=== PATIENT | female | born 1940 | race Caucasian/White ===

== ENCOUNTER 2019-04-07 21:33 | Observation (INO) | payer MEDICARE ==
[2019-04-07] MEDS ORDERED: NORMAL SALINE 1000 ML 1,000 ML IV ONE (22:22)
[2019-04-07] MEDS ORDERED: METHYLPREDNISOLONE INJ 125 MG/2 ML SDV IV ONE (22:22)
[2019-04-07] MEDS ORDERED: IPRATROPIUM/ALBUTEROL 0.5-2.5 MG/3 ML AMPUL NEB ONE (22:22)
--- NOTE | 2019-04-07 22:24 | ER Document Report ---
ED General - General Chief Complaint: Near Syncope Stated Complaint: SYNCOPE Time Seen by Provider: 04/07/19 22:14 Notes: Patient is a 79-year-old female that comes emergency department for chief complaint of weakness, cough, near syncopal episode. She states she has been coughing for a week, she states she coughed until she almost passed out tonight, she states that when she did so she slid off of her bed onto her buttocks on the floor and she felt incredibly weak and like she could not get up. She called EMS as a result. She states she feels a lot better now. Oxygen saturation was 87% on room air, she was initially hypotensive as well although on my evaluation her blood pressure is 101/59. She has received 500 cc bolus and a DuoNeb treatment. She states she feels a lot better already. She denies fevers, chest pain, headache, passing out. She lives at home by herself but her son is now at bedside. Past medical history of COPD, not on home oxygen and former smoker, lower extremity edema on Lasix but denies history of CAD or CHF, type 2 diabetes. TRAVEL OUTSIDE OF THE [place] IN LAST 30 DAYS: No - Related Data Allergies/Adverse Reactions: Penicillins Allergy (Unknown, Verified 02/28/16 11:42) Past Medical History - General Information source: Patient, Relative - Social History Smoking Status: Former Smoker Chew tobacco use (# tins/day): No Frequency of alcohol use: Rare Lives with: Family Family History: Reviewed & Not Pertinent Patient has suicidal ideation: No Patient has homicidal ideation: No - Past Medical History Cardiac Medical History: Reports: Hx Hypercholesterolemia Pulmonary Medical History: Reports: Hx COPD Endocrine Medical History: Reports: Hx Diabetes Mellitus Type 2 GI Medical History: Reports: Hx Gastroesophageal Reflux Disease Musculoskeletal Medical History: Reports Hx Fibromyalgia Psychiatric Medical History: Reports: Hx Depression Past Surgical History: Reports: Hx Tonsillectomy - Immunizations Hx Diphtheria, Pertussis, Tetanus Vaccination: No Hx Pneumococcal Vaccination: 04/05/06 Review of Systems - Review of Systems Constitutional: See HPI EENT: No symptoms reported Cardiovascular: See HPI Respiratory: See HPI Gastrointestinal: No symptoms reported Genitourinary: No symptoms reported Female Genitourinary: No symptoms reported Musculoskeletal: No symptoms reported Skin: No symptoms reported Hematologic/Lymphatic: No symptoms reported Neurological/Psychological: See HPI Physical Exam - Vital signs Vitals: Resp 25 H 04/07/19 21:45 - Notes Notes: GENERAL: Alert, interacts well. HEAD: Normocephalic, atraumatic. EYES: Pupils equal, round, and reactive to light. Extraocular movements intact. ENT: Oral mucosa moist, tongue midline. Oropharynx unremarkable. Airway patent. Nares patent, no nasal septal hematoma, TM's intact. NECK: Full range of motion. Supple. Trachea midline. LUNGS: Next Tory wheezes and scattered rhonchi, mild tachypnea, frequent cough HEART: Regular rate and rhythm. ABDOMEN: Soft, non-tender. Non-distended. EXTREMITIES: Moves all 4 extremities spontaneously. No edema, normal radial and dorsalis pedis pulses bilaterally. No cyanosis. BACK: no cervical, thoracic, lumbar midline tenderness. No saddle anesthesia, normal distal neurovascular exam. Moves all extremities in full range of motion. NEUROLOGICAL: Alert and oriented x3. Normal speech. Cranial nerves II through XII grossly intact. PSYCH: Normal affect, normal mood. SKIN: Warm, dry, normal turgor. No rashes or lesions noted. Course - Re-evaluation Re-evalutation: On my evaluation patient is expiratory wheezes and scattered rhonchi with frequent cough. She also is hypoxic unless she is on nasal cannula, she will be remaining on oxygen for now. Initiating additional treatments. Blood pressure appeared to suddenly drop significantly, however this was rechecked manually and was found to be normal at 102 systolic. CBC shows leukocytosis at 27,000 with elevation of neutrophils but no bandemia. Patient denies recent steroids or usually having a high white blood cell count. Chemistry nonspecific. Troponin is not elevated, BNP is not elevated. Chest x- ray is negative, however with patient's presentation I am concerned for underlying pneumonia, she has begun treatment on Rocephin and azithromycin. Blood cultures pending. Lactic acid is not elevated. Reevaluated patient, she is still improved, wheezing is resolved, she still has coarse rhonchi and cough, she still gets hypoxic off of oxygen. She also is weak and has difficulty standing and ambulating like she does at home. Because of leukocytosis, hypoxia, weakness, advanced age, suspected pneumonia, COPD exacerbation I discussed with family I will discuss with hospitalist for potential admission. Discussed with Dr. Vázquez, internal medicine, patient accepted to telemetry observation. - Vital Signs Vital signs: Temp Pulse Resp BP Pulse Ox 98.4 F 89 18 124/58 L 95 04/08/19 06:27 04/08/19 06:27 04/08/19 06:27 04/08/19 06:27 04/08/19 06:27 - Laboratory Result Diagrams: 04/07/19 22:11 04/07/19 23:05 Laboratory results interpreted by me: 04/07/19 04/07/19 04/08/19 22:11 23:05 00:40 WBC 27.3 H Hgb 11.9 L Seg Neuts % (Manual) 84 H Band Neutrophils % 1 L Lymphocytes % (Manual) 11 L Abs Neuts (Manual) 23.2 H VBG pH Sodium 133.2 L Chloride 94 L BUN 33 H Creatinine 1.92 H Est GFR ( Amer) 30 L Est GFR (MDRD) Non-Af 25 L Direct Bilirubin 0.5 H Albumin 3.3 L Urine Protein 100 H Urine Blood SMALL H Urine Bilirubin SMALL H Urine Urobilinogen 4.0 H Ur Leukocyte Esterase MODERATE H 04/08/19 00:50 WBC Hgb Seg Neuts % (Manual) Band Neutrophils % Lymphocytes % (Manual) Abs Neuts (Manual) VBG pH 7.29 L Sodium Chloride BUN Creatinine Est GFR ( Amer) Est GFR (MDRD) Non-Af Direct Bilirubin Albumin Urine Protein Urine Blood Urine Bilirubin Urine Urobilinogen Ur Leukocyte Esterase Discharge - Discharge Clinical Impression: COPD exacerbation, Productive cough, Hypoxia, Weakness Leukocytosis Qualifiers: Leukocytosis type: unspecified Qualified Code(s): D72.829 - Elevated white blood cell count, unspecified Condition: Stable Disposition: ADMITTED OBSERVATION Admitting Provider: Gurpreet (Hospitalist) Unit Admitted: Telemetry
[2019-04-07 22:34] LABS: HEMOGLOBIN 11.9 g/dL (12.0-15.5); MEAN CORPUSCULAR HEMOGLOBIN 31.1 pg (27.0-33.4); MEAN CORPUSCULAR HGB CONC 33.1 g/dL (32.0-36.0); MEAN CORPUSCULAR VOLUME 94 fl (80-97); PLATELET COUNT 254 10^3/uL (150-450); RED BLOOD COUNT 3.82 10^6/uL (3.72-5.28); RED CELL DISTRIBUTION WIDTH 13.1 % (11.5-14.0); WHITE BLOOD COUNT 27.3 10^3/uL (4.0-10.5)
[2019-04-07 22:51] LABS: ABSOLUTE MONOCYTES # (MANUAL) 1.1 10^3/uL (0.1-1.4); BAND NEUTROPHILS % (MANUAL) 1 % (3-5); BASOPHILS % (MANUAL) 0 % (0-2); EOSINOPHILS % (MANUAL) 0 % (0-6); LYMPHOCYTES % (MANUAL) 11 % (13-45); MONOCYTES % (MANUAL) 4 % (3-13); PLATELET GIANT PRESENT; RBC MORPHOLOGY COMMENT NORMO-CYTIC/CHROMIC; SEGMENTED NEUTROPHILS % (MAN) 84 % (42-78); TOTAL CELLS COUNTED 100
[2019-04-07 22:52] LABS: PLATELET COMMENT ADEQUATE
--- NOTE | 2019-04-07 23:11 | RADIOLOGY REPORT (SQ) ---
EXAM: XR CHEST 1 VIEW CLINICAL INDICATION: 79-year-old female with cough and shortness of breath. TECHNIQUE: Single view, AP portable chest was obtained. COMPARISON: 03/06/2016. FINDINGS: Stable cardiac and mediastinal silhouette. Heart size is normal. Tortuous atherosclerotic thoracic aorta. Lungs are clear without focal opacity, pneumothorax or pleural effusions. The visualized bones reveal degenerative change, particularly of the bilateral shoulders with [id number] apposition of the glenohumeral joint LEFT worse than RIGHT, progressed since the previous examination. IMPRESSION: No acute cardiopulmonary abnormalities.
[2019-04-07] MEDS ORDERED: CEFTRIAXONE 1 GM/D5W RTU 1 GM/50 ML RTUPB IV ONE (23:25)
[2019-04-07] MEDS ORDERED: AZITHROMYCIN INJ 500 MG VIAL IV ONE (23:26)
[2019-04-07 23:42] LABS: ALBUMIN 3.3 g/dL (3.5-5.0); ALKALINE PHOSPHATASE 121 U/L (38-126); ANION GAP 14 (5-19); ASPARTATE AMINO TRANSFERASE 32 U/L (14-36); BILIRUBIN,DIRECT 0.5 mg/dL (0.0-0.4); BLOOD UREA NITROGEN 33 mg/dL (7-20); CARBON DIOXIDE 25 mmol/L (22-30); CHLORIDE 94 mmol/L (98-107); GLUCOSE 90 mg/dL (75-110); POTASSIUM 3.8 mmol/L (3.6-5.0); TOTAL PROTEIN 6.5 g/dL (6.3-8.2)
[2019-04-07 23:52] LABS: NT PRO BNP 258 pg/mL (<450)
[2019-04-07 23:59] LABS: TROPONIN I < 0.012 ng/mL
[2019-04-08 01:01] LABS: APPEARANCE,URINE CLOUDY; BILIRUBIN,URINE SMALL (NEGATIVE); GLUCOSE, URINE NEGATIVE (NEGATIVE); KETONES,URINE NEGATIVE (NEGATIVE); LEUKOCYTE ESTERASE,URINE MODERATE (NEGATIVE); NITRITE,URINE NEGATIVE (NEGATIVE); PROTEIN,URINE 100 mg/dL (NEGATIVE)
[2019-04-08 01:02] LABS: COLOR,URINE YELLOW
[2019-04-08 01:27] LABS: VENOUS BLOOD BASE EXCESS -3.1 mmol/L; VENOUS BLOOD HCO3 24.3 mmol/L (20-32); VENOUS BLOOD PCO2 51.6 mmHg (35-63); VENOUS BLOOD PH 7.29 (7.30-7.42)
[2019-04-08] MEDS ORDERED: DEXTROSE 40% GEL 15 GM TUBE PO PRN ×2 (01:57)
[2019-04-08] MEDS ORDERED: DEXTROSE 50%-WATER 25 GM/50 ML DISP.SYRIN IV PRN ×2 (01:57)
[2019-04-08] MEDS ORDERED: IPRATROPIUM/ALBUTEROL 0.5-2.5 MG/3 ML AMPUL NEB PRN (01:57)
[2019-04-08] MEDS ORDERED: GLUCAGON,HUMAN RECOMB 1 MG INJ IM PRN (01:57)
[2019-04-08] MEDS ORDERED: GUAIFENESIN SYRP 200 MG/10 ML UDC PO PRN (01:57)
[2019-04-08] MEDS: IPRATROPIUM/ALBUTEROL 0.5-2.5 MG/3 ML AMPUL NEB SCH ×4 (03:03→19:46)
--- NOTE | 2019-04-08 06:50 | PDOC H&P ---
History of Present Illness Admission Date/PCP: 04/08/19 02:18 MILLER WILLARD PA-C Patient complains of: Shortness of breath History of Present Illness: TRACEE SANON is a 79 year old female with past medical history of diabetes, CKD 3, COPD, morbid obesity, obstructive sleep apnea with noncompliance and general debility. She presents 4 hours after exertional dyspnea, cough and feeling dizzy she sat on the floor unable to get up. In the emergency department she is found to have leukocytosis, hypoxia, tachypnea and hypotension. She is treated for pneumonia with COPD exacerbation then referred to the hospitalist for admission. Patient denies recent antibiotic use, chest pain nausea vomiting. Past Medical History Cardiac Medical History: Reports: Hyperlipidema Pulmonary Medical History: Reports: Chronic Obstructive Pulmonary Disease (COPD), Sleep Apnea Endocrine Medical History: Reports: Diabetes Mellitus Type 2 GI Medical History: Reports: Gastroesophageal Reflux Disease Musculoskeltal Medical History: Reports: Fibromyalgia Psychiatric Medical History: Reports: Depression Past Surgical History Past Surgical History: Reports: Tonsillectomy Social History Information Source: Patient, [facility] Lives with: Family Smoking Status: Former Smoker Electronic Cigarette use?: No Frequency of Alcohol Use: Social Hx Recreational Drug Use: No Drugs: None Hx Prescription Drug Abuse: No - Advance Directive Resuscitation Status: Full Code Family History Family History: Hypertension Parental Family History Reviewed: Yes Children Family History Reviewed: Yes Sibling(s) Family History Reviewed.: Yes Medication/Allergy Home Medications: Albuterol Sulfate [Ventolin 0.042% Neb 1.25 mg/3 mL Ampul] 1.25 mg NEB QIDP PRN 12/21/11 Furosemide [Lasix 20 mg Tablet] 40 mg PO DAILY 12/21/11 Nortriptyline HCl 50 mg PO QHS 12/21/11 Albuterol Sulfate [Ventolin HFA MDI 18 GM] 1 - 2 puff IH Q4H PRN 03/02/16 Duloxetine HCl 30 mg PO QHS 03/07/16 Fluticasone/Salmeterol [Advair 250-50 Diskus 14 Dose/Diskus] 1 inh IH Q12 #1 inhaler 03/09/16 Glimepiride [Amaryl 1 mg Tablet] 1 mg PO QAM #30 tablet 03/09/16 Ipratropium/Albuterol Sulfate [Combivent Respimat 4 gm Mdi] 1 puff IH Q6 #1 aer.w.adap 03/09/16 Levofloxacin [Levaquin 750 mg Tablet] 750 mg PO DAILY #7 tablet 03/09/16 Levothyroxine Sodium [Synthroid 0.05 mg Tablet] 0.05 mg PO DAILY tablet 03/09/16 Allergies/Adverse Reactions: Penicillins Allergy (Unknown, Verified 02/28/16 11:42) Review of Systems Constitutional: ABSENT: chills, fever(s), headache(s), weight gain, weight loss Eyes: ABSENT: visual disturbances Ears: ABSENT: hearing changes Cardiovascular: PRESENT: as per HPI, dyspnea on exertion. ABSENT: chest pain, edema, orthropnea, palpitations Respiratory: PRESENT: as per HPI, cough, dyspnea. ABSENT: hemoptysis, sputum Gastrointestinal: ABSENT: abdominal pain, constipation, diarrhea, hematemesis, hematochezia, nausea, vomiting Genitourinary: ABSENT: dysuria, hematuria Musculoskeletal: ABSENT: joint swelling Integumentary: ABSENT: rash, wounds Neurological: ABSENT: abnormal gait, abnormal speech, confusion, dizziness, focal weakness, syncope Psychiatric: ABSENT: anxiety, depression, homidical ideation, suicidal ideation Endocrine: ABSENT: cold intolerance, heat intolerance, polydipsia, polyuria Hematologic/Lymphatic: ABSENT: easy bleeding, easy bruising Physical Exam Vital Signs: Temp Pulse Resp BP Pulse Ox 98.4 F 89 18 124/58 L 95 04/08/19 06:27 04/08/19 06:27 04/08/19 06:27 04/08/19 06:27 04/08/19 06:27 Intake & Output 04/06/19 04/07/19 04/08/19 11:59 11:59 11:59 Intake Total 1050 Balance 1050 Weight 87.09 kg General appearance: PRESENT: cooperative, disheveled, mild distress, morbidly obese Head exam: PRESENT: atraumatic, normocephalic Eye exam: PRESENT: conjunctiva pink, EOMI, PERRLA. ABSENT: scleral icterus Ear exam: PRESENT: normal external ear exam Mouth exam: PRESENT: moist, tongue midline Neck exam: ABSENT: carotid bruit, JVD, lymphadenopathy, thyromegaly Respiratory exam: PRESENT: accessory muscle use, crackles, prolonged expiratory phas, retraction, symmetrical, tachypnea Cardiovascular exam: PRESENT: RRR. ABSENT: diastolic murmur, rubs, systolic murmur Pulses: PRESENT: normal dorsalis pedis pul Vascular exam: PRESENT: normal capillary refill GI/Abdominal exam: PRESENT: normal bowel sounds, soft. ABSENT: distended, guarding, mass, organolmegaly, rebound, tenderness Rectal exam: PRESENT: deferred Extremities exam: PRESENT: full ROM. ABSENT: calf tenderness, clubbing, pedal edema Neurological exam: PRESENT: alert, awake, oriented to person, oriented to place, oriented to time, oriented to situation, CN II-XII grossly intact. ABSENT: motor sensory deficit Psychiatric exam: PRESENT: appropriate affect, normal mood. ABSENT: homicidal ideation, suicidal ideation Skin exam: PRESENT: dry, intact, warm. ABSENT: cyanosis, rash Results Laboratory Results: 04/07/19 22:11 04/07/19 23:05 04/07/19 04/07/19 04/07/19 22:11 22:11 22:11 WBC 27.3 H RBC 3.82 Hgb 11.9 L Hct 36.0 MCV 94 MCH 31.1 MCHC 33.1 RDW 13.1 Plt Count 254 Seg Neutrophils % Not Reportable VBG pH VBG pCO2 VBG HCO3 VBG Base Excess Sodium Cancelled Potassium Cancelled Chloride Cancelled Carbon Dioxide Cancelled Anion Gap Cancelled BUN Cancelled Creatinine Cancelled Est GFR ( Amer) Cancelled Est GFR (Non-Af Amer) Cancelled Glucose Cancelled Lactic Acid Cancelled Calcium Cancelled Total Bilirubin Cancelled AST Cancelled Alkaline Phosphatase Cancelled Total Protein Cancelled Albumin Cancelled Urine Color Urine Appearance Urine pH Ur Specific Junction Urine Protein Urine Glucose (UA) Urine Ketones Urine Blood Urine Nitrite Ur Leukocyte Esterase Urine WBC (Auto) Urine RBC (Auto) 04/07/19 04/07/19 04/08/19 23:05 23:05 00:40 WBC RBC Hgb Hct MCV MCH MCHC RDW Plt Count Seg Neutrophils % VBG pH VBG pCO2 VBG HCO3 VBG Base Excess Sodium 133.2 L Potassium 3.8 Chloride 94 L Carbon Dioxide 25 Anion Gap 14 BUN 33 H Creatinine 1.92 H Est GFR ( Amer) 30 L Est GFR (Non-Af Amer) Glucose 90 Lactic Acid 1.7 Calcium 9.0 Total Bilirubin 1.0 AST 32 Alkaline Phosphatase 121 Total Protein 6.5 Albumin 3.3 L Urine Color YELLOW Urine Appearance CLOUDY Urine pH 5.0 Ur Specific Junction 1.020 Urine Protein 100 H Urine Glucose (UA) NEGATIVE Urine Ketones NEGATIVE Urine Blood SMALL H Urine Nitrite NEGATIVE Ur Leukocyte Esterase MODERATE H Urine WBC (Auto) 7 Urine RBC (Auto) 3 04/08/19 00:50 WBC RBC Hgb Hct MCV MCH MCHC RDW Plt Count Seg Neutrophils % VBG pH 7.29 L VBG pCO2 51.6 VBG HCO3 24.3 VBG Base Excess -3.1 Sodium Potassium Chloride Carbon Dioxide Anion Gap BUN Creatinine Est GFR ( Amer) Est GFR (Non-Af Amer) Glucose Lactic Acid Calcium Total Bilirubin AST Alkaline Phosphatase Total Protein Albumin Urine Color Urine Appearance Urine pH Ur Specific Junction Urine Protein Urine Glucose (UA) Urine Ketones Urine Blood Urine Nitrite Ur Leukocyte Esterase Urine WBC (Auto) Urine RBC (Auto) 04/07/19 04/07/19 22:11 23:05 Troponin I Cancelled < 0.012 NT-Pro-B Natriuret Pep Cancelled 258 Impressions: Chest X-Ray 04/07/19 22:21 IMPRESSION: No acute cardiopulmonary abnormalities. Assessment and Plan - Diagnosis (1) Bronchitis Is this a current diagnosis for this admission?: Yes Plan: Possible early pneumonia, albuterol, Atrovent, pneumonia care set. Incentive spirometry and flutter valve. Follow-up CBC and blood culture (2) Diabetes Is this a current diagnosis for this admission?: Yes Plan: Outpatient regiment with Humalog sliding scale (3) COPD exacerbation Is this a current diagnosis for this admission?: Yes Plan: Supplemental oxygen, flutter valve (4) Chronic kidney disease, stage III (moderate) Is this a current diagnosis for this admission?: Yes Plan: Avoid nephrotoxic meds and doses, follow-up chemistry (5) Obstructive sleep apnea Is this a current diagnosis for this admission?: Yes Plan: BiPAP and education - Time Time Spent with patient: 25-34 minutes - Inpatient Certification Medical Necessity: Need Close Monitoring Due to Risk of Patient Decompensation
[2019-04-08] MEDS: HEPARIN SOD (PORCINE) 5,000 UNIT/ML 1 ML VIAL SUBCUT SCH ×3 (07:23→22:05)
--- NOTE | 2019-04-08 08:11 | EKG REPORT ---
SEVERITY:- BORDERLINE ECG - SINUS RHYTHM NONSPECIFIC IVCD : Confirmed by: Jesus Hemphill MD 08-Apr-2019 08:10:22
[2019-04-08] MEDS: INSULIN LISPRO 100 UNIT/ML 3 ML VIAL SUBCUT SCH ×3 (09:50→16:15)
[2019-04-08] MEDS ORDERED: INFLUENZA QUAD (6MOS+) 2019-20 VAC 0.5 ML SYR IM ONE (09:53)
[2019-04-08 13:26] LABS: HEMATOCRIT 33.1 % (36.0-47.0); HEMOGLOBIN 11.2 g/dL (12.0-15.5); MEAN CORPUSCULAR HEMOGLOBIN 31.1 pg (27.0-33.4); MEAN CORPUSCULAR HGB CONC 33.8 g/dL (32.0-36.0); MEAN CORPUSCULAR VOLUME 92 fl (80-97); PLATELET COUNT 192 10^3/uL (150-450); RED BLOOD COUNT 3.59 10^6/uL (3.72-5.28); WHITE BLOOD COUNT 22.6 10^3/uL (4.0-10.5)
[2019-04-08 13:29] LABS: ANION GAP 10 (5-19); BLOOD UREA NITROGEN 43 mg/dL (7-20); CALCIUM 9.2 mg/dL (8.4-10.2); CARBON DIOXIDE 30 mmol/L (22-30); CHLORIDE 94 mmol/L (98-107); GLUCOSE 179 mg/dL (75-110); POTASSIUM 3.9 mmol/L (3.6-5.0)
[2019-04-08] MEDS: FLUTICASONE NASAL SPRAY 50 MCG/SPRY 120 SPRAY/16 GM NASL SCH ×2 (13:47→22:07)
[2019-04-08] MEDS: METHYLPREDNISOLONE INJ 40 MG/1 ML SDV IV SCH ×2 (13:47→22:05)
[2019-04-08 13:48] LABS: ABSOLUTE LYMPHOCYTES# (MANUAL) 1.4 10^3/uL (0.5-4.7); ABSOLUTE MONOCYTES # (MANUAL) 0.5 10^3/uL (0.1-1.4); BASOPHILS % (MANUAL) 0 % (0-2); EOSINOPHILS % (MANUAL) 0 % (0-6); LYMPHOCYTES % (MANUAL) 6 % (13-45); MONOCYTES % (MANUAL) 2 % (3-13); SEGMENTED NEUTROPHILS % (MAN) 92 % (42-78); TOTAL CELLS COUNTED 100
[2019-04-08 13:49] LABS: PLATELET CLUMPS PRESENT; PLATELET COMMENT ADEQUATE
[2019-04-08] MEDS: CEFTRIAXONE 1 GM/D5W RTU 1 GM/50 ML RTUPB IV SCH (22:06)
[2019-04-08] MEDS: ACETAMINOPHEN 325 MG TABLET PO PRN (22:06)
[2019-04-08] MEDS: AZITHROMYCIN 500 MG in DEXTROSE 5%-WATER 250 ML IV SCH (22:58)
[2019-04-09] MEDS: IPRATROPIUM/ALBUTEROL 0.5-2.5 MG/3 ML AMPUL NEB SCH ×4 (02:37→19:39)
[2019-04-09 05:10] LABS: ANION GAP 11 (5-19); BLOOD UREA NITROGEN 58 mg/dL (7-20); CALCIUM 9.4 mg/dL (8.4-10.2); CARBON DIOXIDE 28 mmol/L (22-30); CHLORIDE 96 mmol/L (98-107); GLUCOSE 270 mg/dL (75-110); POTASSIUM 4.3 mmol/L (3.6-5.0)
[2019-04-09 05:40] LABS: HEMATOCRIT 33.6 % (36.0-47.0); HEMOGLOBIN 11.2 g/dL (12.0-15.5); MEAN CORPUSCULAR HEMOGLOBIN 30.7 pg (27.0-33.4); MEAN CORPUSCULAR HGB CONC 33.2 g/dL (32.0-36.0); MEAN CORPUSCULAR VOLUME 93 fl (80-97); PLATELET COUNT 230 10^3/uL (150-450); RED BLOOD COUNT 3.64 10^6/uL (3.72-5.28); RED CELL DISTRIBUTION WIDTH 12.9 % (11.5-14.0)
[2019-04-09 05:47] LABS: WHITE BLOOD COUNT 30.1 10^3/uL (4.0-10.5)
[2019-04-09] MEDS: HEPARIN SOD (PORCINE) 5,000 UNIT/ML 1 ML VIAL SUBCUT SCH ×3 (06:19→23:12)
[2019-04-09] MEDS: INSULIN LISPRO 100 UNIT/ML 3 ML VIAL SUBCUT SCH ×3 (08:20→18:17)
[2019-04-09] MEDS: FLUTICASONE NASAL SPRAY 50 MCG/SPRY 120 SPRAY/16 GM NASL SCH ×2 (09:37→23:14)
[2019-04-09] MEDS: METHYLPREDNISOLONE INJ 40 MG/1 ML SDV IV SCH ×2 (09:37→23:13)
--- NOTE | 2019-04-09 16:01 | PDOC PROGRESS REPORT ---
Subjective Progress Note for:: 04/09/19 Subjective:: This is a 79 year old female with past medical history of diabetes, CKD 3, COPD not on home O2, morbid obesity, obstructive sleep apnea with noncompliance and general debility who presented with SOB and cough. She was found to have leukocytosis, hypoxia, tachypnea and hypotension. She was admitted for COPD exacerbation and possible pneumonia. She was started on IV antibiotics, steroids and breathing treatments. No acute event overnight. She says that her shortness of breath has improved. Denies chest pain. Saturating well on nasal cannula. Reason For Visit: COPD EXACERBATION,PNEUMONIA Physical Exam Vital Signs: Temp Pulse Resp BP Pulse Ox 97.7 F 94 22 H 152/56 H 98 04/09/19 07:55 04/09/19 07:55 04/09/19 07:55 04/09/19 07:55 04/09/19 07:55 Intake & Output 04/08/19 04/09/19 04/10/19 06:59 06:59 06:59 Intake Total 1050 520 Balance 1050 520 Weight 192 lb 197 lb 1.492 oz General appearance: PRESENT: no acute distress, well-developed, well-nourished Head exam: PRESENT: atraumatic, normocephalic Eye exam: PRESENT: conjunctiva pink, EOMI, PERRLA. ABSENT: scleral icterus Ear exam: PRESENT: normal external ear exam Mouth exam: PRESENT: moist, tongue midline Neck exam: ABSENT: carotid bruit, JVD, lymphadenopathy, thyromegaly Respiratory exam: PRESENT: rhonchi. ABSENT: rales, wheezes Cardiovascular exam: PRESENT: RRR. ABSENT: diastolic murmur, rubs, systolic murmur Pulses: PRESENT: normal dorsalis pedis pul GI/Abdominal exam: PRESENT: normal bowel sounds, soft. ABSENT: distended, guarding, mass, organolmegaly, rebound, tenderness Rectal exam: PRESENT: deferred Extremities exam: PRESENT: full ROM. ABSENT: calf tenderness, clubbing, pedal edema Neurological exam: PRESENT: alert, awake, oriented to person, oriented to place, oriented to time, oriented to situation, CN II-XII grossly intact. ABSENT: motor sensory deficit Results Laboratory Results: 04/09/19 04:04 04/09/19 04:04 04/09/19 04/09/19 04:04 04:04 WBC 30.1 H* RBC 3.64 L Hgb 11.2 L Hct 33.6 L MCV 93 MCH 30.7 MCHC 33.2 RDW 12.9 Plt Count 230 Sodium 134.7 L Potassium 4.3 Chloride 96 L Carbon Dioxide 28 Anion Gap 11 BUN 58 H Creatinine 1.79 H Est GFR ( Amer) 33 L Glucose 270 H Calcium 9.4 04/07/19 04/07/19 22:11 23:05 Troponin I Cancelled < 0.012 NT-Pro-B Natriuret Pep Cancelled 258 Impressions: Chest X-Ray 04/07/19 22:21 IMPRESSION: No acute cardiopulmonary abnormalities. Assessment and Plan - Diagnosis (1) Acute respiratory failure with hypoxia Is this a current diagnosis for this admission?: Yes Plan: Secondary to COPD exacerbation and possible pneumonia. Currently on 3 L via nasal cannula. We will continue to wean off O2. (2) COPD exacerbation Is this a current diagnosis for this admission?: Yes Plan: Continue steroids and breathing treatments. (3) Chronic kidney disease, stage III (moderate) Is this a current diagnosis for this admission?: Yes Plan: Avoid nephrotoxic meds. Creatinine at baseline. (4) HTN (hypertension) Qualifiers: Hypertension type: essential hypertension Qualified Code(s): I10 - Essential (primary) hypertension Is this a current diagnosis for this admission?: Yes Plan: Controlled. Continue home meds. - Time Time Spent with patient: 25-34 minutes
[2019-04-09] MEDS: CEFTRIAXONE 1 GM/D5W RTU 1 GM/50 ML RTUPB IV SCH (23:13)
[2019-04-09] MEDS: AZITHROMYCIN 500 MG in DEXTROSE 5%-WATER 250 ML IV SCH (23:13)
[2019-04-09] MEDS: ACETAMINOPHEN 325 MG TABLET PO PRN (23:13)
[2019-04-10] MEDS: IPRATROPIUM/ALBUTEROL 0.5-2.5 MG/3 ML AMPUL NEB SCH ×4 (02:37→19:34)
[2019-04-10] MEDS: HEPARIN SOD (PORCINE) 5,000 UNIT/ML 1 ML VIAL SUBCUT SCH ×3 (05:24→23:58)
[2019-04-10] MEDS: INSULIN LISPRO 100 UNIT/ML 3 ML VIAL SUBCUT SCH ×3 (07:50→18:17)
[2019-04-10 08:08] LABS: ANION GAP 9 (5-19); BLOOD UREA NITROGEN 62 mg/dL (7-20); CARBON DIOXIDE 28 mmol/L (22-30); CHLORIDE 99 mmol/L (98-107); GLUCOSE 227 mg/dL (75-110)
--- NOTE | 2019-04-10 08:16 | RADIOLOGY REPORT (SQ) ---
EXAM DESCRIPTION: CT CHEST WITHOUT COMPLETED DATE/TIME: 04/09/2019 6:53 pm REASON FOR STUDY: SOB, cough, normal CXR N17.8 OTHER ACUTE KIDNEY FAILURE J96.01 ACUTE RESPIRATORY FAILURE WITH HYPOXIA COMPARISON: 04/07/2019 TECHNIQUE: CT scan performed of the chest without intravenous contrast. Images reviewed with lung, soft tissue and bone windows. Reconstructed coronal and sagittal MPR images reviewed. All images st ored on PACS. All CT scanners at this facility use dose modulation, iterative reconstruction, and/or weight based d osing when appropriate to reduce radiation dose to as low as reasonably achievable (ALARA). [facility]: Dose Right [facility]: CareDose [facility]: Dose Right [facility]: Teradose 4D [facility]: Axxana RADIATION DOSE: CT Rad equipment meets quality standard of care and radiation dose reduction techniq ues were employed. CTDIvol: 18.6 mGy. DLP: 706 mGy-cm. mGy. LIMITATIONS: No technical limitations. FINDINGS: LUNGS AND PLEURA: Mild bibasilar consolidation, right greater than left, likely atelectati c change. No significant effusion. No pneumothorax. No discrete pulmonary masses. Sub 4 mm nodula r opacity along the left major fissure (series 4, image 56). HILAR AND MEDIASTINAL STRUCTURES: No mediastinal, hilar or axillary adenopathy. HEART AND VASCULAR STRUCTURES: Normal heart size. No aneurysm. No pericardial effusion. Three-vess el coronary atherosclerosis. UPPER ABDOMEN: Cholelithiasis. Left renal cyst. No acute findings. THYROID AND OTHER SOFT TISSUES: No masses. No adenopathy. BONES: No significant finding. HARDWARE: None in the chest. OTHER: No other significant findings. IMPRESSION: 1. Mild bibasilar consolidation, right greater than left, likely atelectatic change. 2. Scattered coronary atherosclerosis. 3. No other evidence of acute intrathoracic process. TECHNICAL DOCUMENTATION: JOB ID: [id number] Quality ID # [id number]: Final reports with documentation of one or more dose reduction techniques (e.g., Au tomated exposure control, adjustment of the mA and/or kV according to patient size, use of iterative reconstruction technique) 2010 [employer]- All Rights Reserved Reading location - IP/workstation name: [email or web address]
[2019-04-10 09:41] LABS: PATH REVIEW PATHOLOGIST REVIEWED
[2019-04-10] MEDS ORDERED: ALPRAZOLAM 0.25 MG TABLET PO ONE (11:15)
[2019-04-10] MEDS: FLUTICASONE NASAL SPRAY 50 MCG/SPRY 120 SPRAY/16 GM NASL SCH ×2 (11:47→23:32)
[2019-04-10] MEDS: METHYLPREDNISOLONE INJ 40 MG/1 ML SDV IV SCH (12:19)
[2019-04-10 13:45] LABS: FREE T3 1.85 pg/mL (2.77-5.27); FREE T4 (FREE THYROXINE) 1.6 ng/dL (0.78-2.19)
[2019-04-10 13:59] LABS: THYROID STIMULATING HORMONE 0.28 uIU/mL (0.47-4.68)
--- NOTE | 2019-04-10 15:53 | PDOC PROGRESS REPORT ---
Subjective Progress Note for:: 04/10/19 Subjective:: This is a 79 year old female with past medical history of diabetes, CKD 3, COPD not on home O2, morbid obesity, obstructive sleep apnea with noncompliance and general debility who presented with SOB and cough. She was found to have leukocytosis, hypoxia, tachypnea and hypotension. She was admitted for COPD exacerbation and possible pneumonia. She was started on IV antibiotics, steroids and breathing treatments. 04/09: No acute event overnight. She says that her shortness of breath has improved. Denies chest pain. Saturating well on nasal cannula. 04/10: RN reported that patient started having hallucinations overnight. Upon encounter this morning, he is oriented to person and is able to recall me as her provider. She is oriented to place. But she reports that she was seeing a group of people outside her room this morning that they were saying rude and mean things to her. She is very upset about it and is a little agitated. Staff reports that there was nobody person outside her room when she was complaining about them. Suspecting psychosis from high IV steroids. Switch to low dose prednisone. Her lungs sound clear today. She says that her shortness of breath significantly improved and she is at her baseline. Her close friend/hims coder/roommate expressed that patient has had a few episodes of visual auditory hallucinations previously at home. Discussed with psych who will also be evaluating the patient. Recommended resuming Cymbalta as Cymbalta withdrawal could be possibly contributing to her symptoms. Reason For Visit: COPD EXACERBATION,PNEUMONIA Physical Exam Vital Signs: Temp Pulse Resp BP Pulse Ox 98.4 F 96 18 132/116 H 93 04/10/19 12:00 04/10/19 12:00 04/10/19 12:00 04/10/19 12:00 04/10/19 12:00 Intake & Output 04/09/19 04/10/19 04/11/19 06:59 06:59 06:59 Intake Total 520 1440 Balance 520 1440 Weight 197 lb 1.492 oz 195 lb 8.8 oz General appearance: PRESENT: no acute distress, well-developed, well-nourished Head exam: PRESENT: atraumatic, normocephalic Eye exam: PRESENT: conjunctiva pink, EOMI, PERRLA. ABSENT: scleral icterus Ear exam: PRESENT: normal external ear exam Mouth exam: PRESENT: moist, tongue midline Neck exam: ABSENT: carotid bruit, JVD, lymphadenopathy, thyromegaly Respiratory exam: PRESENT: clear to auscultation matthew. ABSENT: rales, rhonchi, wheezes Cardiovascular exam: PRESENT: RRR. ABSENT: diastolic murmur, rubs, systolic murmur Pulses: PRESENT: normal dorsalis pedis pul GI/Abdominal exam: PRESENT: normal bowel sounds, soft. ABSENT: distended, guarding, mass, organolmegaly, rebound, tenderness Rectal exam: PRESENT: deferred Neurological exam: PRESENT: alert, awake, oriented to person, oriented to place Results Laboratory Results: 04/09/19 04:04 04/10/19 06:45 04/10/19 06:45 Sodium 136.3 L Potassium 5.0 Chloride 99 Carbon Dioxide 28 Anion Gap 9 BUN 62 H Creatinine 1.48 H Est GFR ( Amer) 41 L Glucose 227 H Calcium 10.0 Magnesium 2.2 04/07/19 04/07/19 22:11 23:05 Troponin I Cancelled < 0.012 NT-Pro-B Natriuret Pep Cancelled 258 Impressions: Chest X-Ray 04/07/19 22:21 IMPRESSION: No acute cardiopulmonary abnormalities. Chest CT 04/09/19 00:00 IMPRESSION: 1. Mild bibasilar consolidation, right greater than left, likely atelectatic change. 2. Scattered coronary atherosclerosis. 3. No other evidence of acute intrathoracic process. Assessment and Plan - Diagnosis (1) Acute respiratory failure with hypoxia Is this a current diagnosis for this admission?: Yes Plan: Secondary to COPD exacerbation and possible pneumonia. 04/10: Resolving. (2) Psychosis Is this a current diagnosis for this admission?: Yes Plan: Suspecting psychosis from high IV steroids. Switch to low dose prednisone. Her lungs sound clear today. She says that her shortness of breath significantly improved and she is at her baseline. Her close friend/hims coder/roommate expressed that patient has had a few episodes of visual auditory hallucinations previously at home. Discussed with psych who will also be evaluating the patient. Recommended resuming Cymbalta as Cymbalta withdrawal could be possibly contributing to her symptoms. (3) COPD exacerbation Is this a current diagnosis for this admission?: Yes Plan: Switch solumedrol to low dose prednisone. Continue breathing treatments. (4) Chronic kidney disease, stage III (moderate) Is this a current diagnosis for this admission?: Yes Plan: Avoid nephrotoxic meds. Creatinine at baseline. (5) HTN (hypertension) Qualifiers: Hypertension type: essential hypertension Qualified Code(s): I10 - Essential (primary) hypertension Is this a current diagnosis for this admission?: Yes Plan: Controlled. Continue home meds. (6) Pneumonia Is this a current diagnosis for this admission?: Yes Plan: Continue antibiotics.
[2019-04-10] MEDS: PREDNISONE 10 MG TABLET PO SCH (18:39)
[2019-04-10] MEDS ORDERED: HALOPERIDOL LACTATE INJ 5 MG/1 ML VIAL IV PRN (19:43)
[2019-04-10] MEDS: ACETAMINOPHEN 325 MG TABLET PO PRN (20:02)
[2019-04-10] MEDS ORDERED: (PENDING PHARMACY ID) (Nortriptyline Hcl [Pamelor] 50 MG) PO SCH (22:00)
[2019-04-10] MEDS: NORTRIPTYLINE HCL 25 MG CAPSULE PO SCH (22:34)
[2019-04-10] MEDS: ATORVASTATIN CALCIUM 10 MG TABLET PO SCH (22:34)
[2019-04-10] MEDS ORDERED: DIAZEPAM INJ 10 MG/2 ML DISP.SYRIN IV ONE (23:00)
[2019-04-10] MEDS: AZITHROMYCIN 500 MG in DEXTROSE 5%-WATER 250 ML IV SCH (23:44)
[2019-04-11] MEDS: IPRATROPIUM/ALBUTEROL 0.5-2.5 MG/3 ML AMPUL NEB SCH ×4 (02:11→20:08)
[2019-04-11] MEDS ORDERED: LEVOTHYROXINE SODIUM 0.05 MG TABLET PO SCH (06:00)
[2019-04-11] MEDS: HEPARIN SOD (PORCINE) 5,000 UNIT/ML 1 ML VIAL SUBCUT SCH ×3 (06:30→21:11)
[2019-04-11] MEDS: INSULIN LISPRO 100 UNIT/ML 3 ML VIAL SUBCUT SCH ×3 (08:16→17:25)
[2019-04-11] MEDS ORDERED: (PENDING PHARMACY ID) (Lovastatin [Lovastatin] 40 MG) PO SCH (10:00)
[2019-04-11] MEDS ORDERED: DULOXETINE HCL 30 MG CAPSULE.DR PO SCH ×2 (10:00)
[2019-04-11] MEDS: FLUTICASONE NASAL SPRAY 50 MCG/SPRY 120 SPRAY/16 GM NASL SCH ×2 (11:13→21:12)
[2019-04-11] MEDS: FERROUS SULFATE 325 MG TABLET PO SCH (11:14)
[2019-04-11] MEDS: MELOXICAM 15 MG TABLET PO SCH (11:14)
[2019-04-11] MEDS: CEFTRIAXONE 1 GM/D5W RTU 1 GM/50 ML RTUPB IV SCH (11:14)
[2019-04-11] MEDS: LISINOPRIL 5 MG TABLET PO SCH (11:15)
[2019-04-11] MEDS: FUROSEMIDE 40 MG TABLET PO SCH (11:15)
[2019-04-11] MEDS: PREDNISONE 10 MG TABLET PO SCH ×2 (11:15→17:35)
--- NOTE | 2019-04-11 16:22 | PDOC PROGRESS REPORT ---
Subjective Progress Note for:: 04/11/19 Reason For Visit: COPD EXACERBATION,PNEUMONIA 04/11/2019 Admitted for shortness of breath and cough. CT scan shows bibasilar consolidations right greater than left Physical Exam Vital Signs: Temp Pulse Resp BP Pulse Ox 97.3 F 100 18 156/71 H 92 04/11/19 12:00 04/11/19 15:32 04/11/19 13:22 04/11/19 12:00 04/11/19 13:22 Intake & Output 04/10/19 04/11/19 04/12/19 06:59 06:59 06:59 Intake Total 1440 266 240 Balance 1440 266 240 Weight 88.7 kg 86.4 kg General appearance: PRESENT: no acute distress, other - Patient sitting up in the room talking with her future roommate. States that the hallucinations are gone Respiratory exam: PRESENT: wheezes Cardiovascular exam: PRESENT: RRR. ABSENT: diastolic murmur, rubs, systolic murmur Neurological exam: PRESENT: alert, awake, oriented to person, oriented to place, oriented to time, oriented to situation, CN II-XII grossly intact, other - Patient appears neurologically intact and oriented x4. ABSENT: motor sensory deficit Psychiatric exam: PRESENT: appropriate affect, normal mood. ABSENT: homicidal ideation, suicidal ideation Results Laboratory Results: 04/09/19 04:04 04/10/19 06:45 04/07/19 04/07/19 22:11 23:05 Troponin I Cancelled < 0.012 NT-Pro-B Natriuret Pep Cancelled 258 Impressions: Chest X-Ray 04/07/19 22:21 IMPRESSION: No acute cardiopulmonary abnormalities. Chest CT 04/09/19 00:00 IMPRESSION: 1. Mild bibasilar consolidation, right greater than left, likely atelectatic change. 2. Scattered coronary atherosclerosis. 3. No other evidence of acute intrathoracic process. Assessment and Plan - Diagnosis (1) Acute respiratory failure with hypoxia Is this a current diagnosis for this admission?: Yes (2) COPD exacerbation Is this a current diagnosis for this admission?: Yes (3) Diabetes Is this a current diagnosis for this admission?: Yes (5) Obstructive sleep apnea Is this a current diagnosis for this admission?: Yes (6) Pneumonia Is this a current diagnosis for this admission?: Yes - Plan Summary Summary: 04/11/2019 Temperature 97.4, pulse 94, blood pressure 144/77, O2 sat was 94% on room air, however with walking O2 sat drops down to 81% Patient currently on IV Zithromax and IV Rocephin as well as p.o. prednisone Patient's white count is elevated however I suspect this is due to partly to steroids Potassium up slightly to 5.0 Creatinine down to 1.48 She was admitted 3 days ago We will recheck labs in the morning Will decrease patient's Synthroid as her TSH is low Patient will need oxygen at home when discharged - Time Time Spent with patient: 25-34 minutes
[2019-04-11] MEDS: NORTRIPTYLINE HCL 25 MG CAPSULE PO SCH (21:12)
[2019-04-11] MEDS: ATORVASTATIN CALCIUM 10 MG TABLET PO SCH (21:12)
[2019-04-11] MEDS: AZITHROMYCIN 500 MG in DEXTROSE 5%-WATER 250 ML IV SCH (21:12)
--- NOTE | 2019-04-11 22:28 | EKG REPORT ---
SEVERITY:- ABNORMAL ECG - SINUS OR ECTOPIC ATRIAL RHYTHM PROBABLE LEFT ATRIAL ABNORMALITY LOW VOLTAGE IN FRONTAL LEADS BORDERLINE T WAVE ABNORMALITIES : Confirmed by: Vaishnavi Kraus 11-Apr-2019 22:27:18
[2019-04-12] MEDS: IPRATROPIUM/ALBUTEROL 0.5-2.5 MG/3 ML AMPUL NEB SCH ×3 (01:53→13:16)
[2019-04-12] MEDS: HEPARIN SOD (PORCINE) 5,000 UNIT/ML 1 ML VIAL SUBCUT SCH ×2 (05:18→13:53)
[2019-04-12] MEDS ORDERED: LEVOTHYROXINE SODIUM 0.025 MG TABLET PO SCH (06:00)
[2019-04-12] MEDS: INSULIN LISPRO 100 UNIT/ML 3 ML VIAL SUBCUT SCH ×2 (08:09→12:27)
[2019-04-12] MEDS: FUROSEMIDE 40 MG TABLET PO SCH (10:03)
[2019-04-12] MEDS: CEFTRIAXONE 1 GM/D5W RTU 1 GM/50 ML RTUPB IV SCH (10:03)
[2019-04-12] MEDS: MELOXICAM 15 MG TABLET PO SCH (10:03)
[2019-04-12] MEDS: LISINOPRIL 5 MG TABLET PO SCH (10:03)
[2019-04-12] MEDS: FERROUS SULFATE 325 MG TABLET PO SCH (10:04)
[2019-04-12] MEDS: PREDNISONE 10 MG TABLET PO SCH (10:04)
[2019-04-12] MEDS: FLUTICASONE NASAL SPRAY 50 MCG/SPRY 120 SPRAY/16 GM NASL SCH (10:04)
[2019-04-12 11:20] LABS: ANION GAP 7 (5-19); BLOOD UREA NITROGEN 40 mg/dL (7-20); CALCIUM 9.4 mg/dL (8.4-10.2); CARBON DIOXIDE 31 mmol/L (22-30); CHLORIDE 99 mmol/L (98-107); GLUCOSE 149 mg/dL (75-110); POTASSIUM 4.5 mmol/L (3.6-5.0)
[2019-04-12 11:49] LABS: HEMOGLOBIN 12.8 g/dL (12.0-15.5); MEAN CORPUSCULAR HGB CONC 32.8 g/dL (32.0-36.0); MEAN CORPUSCULAR VOLUME 95 fl (80-97); PLATELET COUNT 308 10^3/uL (150-450); RED BLOOD COUNT 4.12 10^6/uL (3.72-5.28); RED CELL DISTRIBUTION WIDTH 13.3 % (11.5-14.0); WHITE BLOOD COUNT 12.4 10^3/uL (4.0-10.5)
[2019-04-12 12:13] LABS: ABSOLUTE LYMPHOCYTES# (MANUAL) 2.4 10^3/uL (0.5-4.7); ABSOLUTE MONOCYTES # (MANUAL) 1.2 10^3/uL (0.1-1.4); BAND NEUTROPHILS % (MANUAL) 1 % (3-5); BASOPHILS % (MANUAL) 0 % (0-2); EOSINOPHILS % (MANUAL) 0 % (0-6); LYMPHOCYTES % (MANUAL) 19 % (13-45); METAMYELOCYTES % (MANUAL) 1 % (0-1); MONOCYTES % (MANUAL) 10 % (3-13); SEGMENTED NEUTROPHILS % (MAN) 69 % (42-78); TOTAL CELLS COUNTED 100
[2019-04-12 12:14] LABS: PLATELET COMMENT ADEQUATE; RBC MORPHOLOGY COMMENT NORMO-CYTIC/CHROMIC
[2019-04-12 15:25] VITALS: BP 131/57
--- NOTE | 2019-04-12 15:48 | PDOC PROGRESS REPORT ---
Subjective Progress Note for:: 04/12/19 Reason For Visit: COPD EXACERBATION,PNEUMONIA 04/12/2019 COPD exacerbation, pneumonia, hypothyroidism, diabetes Physical Exam Vital Signs: Temp Pulse Resp BP Pulse Ox 97.7 F 102 H 18 131/57 H 93 04/12/19 15:20 04/12/19 15:20 04/12/19 15:20 04/12/19 15:20 04/12/19 15:20 Intake & Output 04/11/19 04/12/19 04/13/19 06:59 06:59 06:59 Intake Total 516 760 290 Balance 516 760 290 Weight 86.4 kg 89.1 kg General appearance: PRESENT: no acute distress Respiratory exam: PRESENT: rhonchi Cardiovascular exam: PRESENT: RRR. ABSENT: diastolic murmur, rubs, systolic murmur Neurological exam: PRESENT: alert, awake, oriented to person, oriented to place, oriented to time, oriented to situation, CN II-XII grossly intact. ABSENT: motor sensory deficit Psychiatric exam: PRESENT: appropriate affect, normal mood. ABSENT: homicidal ideation, suicidal ideation Results Laboratory Results: 04/12/19 10:44 04/12/19 10:44 04/12/19 04/12/19 10:44 10:44 WBC 12.4 H RBC 4.12 Hgb 12.8 Hct 39.0 MCV 95 MCH 31.0 MCHC 32.8 RDW 13.3 Plt Count 308 Seg Neutrophils % Not Reportable Sodium 137.4 Potassium 4.5 Chloride 99 Carbon Dioxide 31 H Anion Gap 7 BUN 40 H Creatinine 1.31 H Est GFR ( Amer) 47 L Glucose 149 H Calcium 9.4 04/07/19 04/07/19 22:11 23:05 Troponin I Cancelled < 0.012 NT-Pro-B Natriuret Pep Cancelled 258 Impressions: Chest X-Ray 04/07/19 22:21 IMPRESSION: No acute cardiopulmonary abnormalities. Chest CT 04/09/19 00:00 IMPRESSION: 1. Mild bibasilar consolidation, right greater than left, likely atelectatic change. 2. Scattered coronary atherosclerosis. 3. No other evidence of acute intrathoracic process. Assessment and Plan - Diagnosis (1) Acute respiratory failure with hypoxia Is this a current diagnosis for this admission?: Yes (2) COPD exacerbation Is this a current diagnosis for this admission?: Yes (3) Diabetes Is this a current diagnosis for this admission?: Yes (5) Obstructive sleep apnea Is this a current diagnosis for this admission?: Yes (6) Pneumonia Is this a current diagnosis for this admission?: Yes - Plan Summary Summary: 04/11/2019 Temperature 97.4, pulse 94, blood pressure 144/77, O2 sat was 94% on room air, however with walking O2 sat drops down to 81% Patient currently on IV Zithromax and IV Rocephin as well as p.o. prednisone Patient's white count is elevated however I suspect this is due to partly to steroids Potassium up slightly to 5.0 Creatinine down to 1.48 She was admitted 3 days ago We will recheck labs in the morning Will decrease patient's Synthroid as her TSH is low Patient will need oxygen at home when discharged 04/12/2019 Patient was discharged home today with her pneumonia improving on antibiotics, however even when her antibiotics are completed patient will still require home oxygen. Patient has underlying COPD that will not be corrected by antibiotics. Patient's oxygen will need to be 2 L nasal cannula PRN. Patient will also need a front wheel walker to assist with ambulation. He was discharged home on a Medrol Dosepak, a new dose of Synthroid 0.025 and 5 more days of Zithromax 500 mg daily - Time Time Spent with patient: 15-24 minutes
--- NOTE | 2019-04-13 13:20 | PDOC DISCHARGE SUMMARY ---
Impression - Admit/DC Date/PCP Admission Date/Primary Care Provider: 04/08/19 02:18 MILLER WILLARD PA-C Discharge Date: 04/12/19 - Discharge Diagnosis (1) Acute respiratory failure with hypoxia Is this a current diagnosis for this admission?: Yes (2) COPD exacerbation Is this a current diagnosis for this admission?: Yes (3) Diabetes Is this a current diagnosis for this admission?: Yes (5) Obstructive sleep apnea Is this a current diagnosis for this admission?: Yes (6) Pneumonia Is this a current diagnosis for this admission?: Yes - Assessment Summary: 04/11/2019 Temperature 97.4, pulse 94, blood pressure 144/77, O2 sat was 94% on room air, however with walking O2 sat drops down to 81% Patient currently on IV Zithromax and IV Rocephin as well as p.o. prednisone Patient's white count is elevated however I suspect this is due to partly to steroids Potassium up slightly to 5.0 Creatinine down to 1.48 She was admitted 3 days ago We will recheck labs in the morning Will decrease patient's Synthroid as her TSH is low Patient will need oxygen at home when discharged 04/12/2019 Patient was discharged home today with her pneumonia improving on antibiotics, however even when her antibiotics are completed patient will still require home oxygen. Patient has underlying COPD that will not be corrected by antibiotics. Patient's oxygen will need to be 2 L nasal cannula PRN. Patient will also need a front wheel walker to assist with ambulation. He was discharged home on a Medrol Dosepak, a new dose of Synthroid 0.025 and 5 more days of Zithromax 500 mg daily - Additional Information Resuscitation Status: Full Code Discharge Diet: Diabetic Discharge Activity: Balance Activity w/Rest Referrals: MILLER WILLARD PA-C [Primary Care Provider] - 04/19/19 11:00 am Prescriptions: Methylprednisolone [Medrol Dosepack (4 mg/Tab) 21 Tab/Dosepak] 4 mg PO ASDIR PRN #21 tab.ds.pk PRN Reason: Levothyroxine Sodium [Synthroid 0.025 mg Tablet] 0.025 mg PO Q6AM 30 Days #30 tablet Azithromycin [Zithromax 250 mg Tablet] 500 mg PO DAILY 5 Days #10 tablet Home Medications: Duloxetine HCl [Cymbalta 30 mg Capsule.dr] 30 mg PO DAILY 04/08/19 Duloxetine HCl [Cymbalta] 60 mg PO DAILY 04/08/19 Ferrous Sulfate [Feosol 325 mg Tablet] 325 mg PO DAILY 04/08/19 Furosemide [Lasix 40 mg Tablet] 40 mg PO QAM 04/08/19 Glimepiride [Amaryl 1 mg Tablet] 1 mg PO BID 04/08/19 Lisinopril [Zestril] 5 mg PO DAILY 04/08/19 Lovastatin 40 mg PO DAILY 04/08/19 Meloxicam [Mobic] 15 mg PO DAILY 04/08/19 Nortriptyline HCl [Pamelor] 50 mg PO QHS 04/08/19 Azithromycin [Zithromax 250 mg Tablet] 500 mg PO DAILY 5 Days #10 tablet 04/12/19 Levothyroxine Sodium [Synthroid 0.025 mg Tablet] 0.025 mg PO Q6AM 30 Days #30 tablet 04/12/19 Methylprednisolone [Medrol Dosepack (4 mg/Tab) 21 Tab/Dosepak] 4 mg PO ASDIR PRN #21 tab.ds.pk 04/12/19 History of Present Illiness History of Present Illness: TRACEE SANON is a 79 year old female Physical Exam Vital Signs: Temp Pulse Resp BP Pulse Ox 97.7 F 102 H 18 131/57 H 93 04/12/19 15:20 04/12/19 15:20 04/12/19 15:20 04/12/19 15:20 04/12/19 15:20 Intake & Output 04/12/19 04/13/19 04/14/19 06:59 06:59 06:59 Intake Total 760 290 Balance 760 290 Weight 89.1 kg Results Laboratory Results: WBC 12.4 10^3/uL (4.0-10.5) H 04/12/19 10:44 RBC 4.12 10^6/uL (3.72-5.28) 04/12/19 10:44 Hgb 12.8 g/dL (12.0-15.5) 04/12/19 10:44 Hct 39.0 % (36.0-47.0) 04/12/19 10:44 MCV 95 fl (80-97) 04/12/19 10:44 MCH 31.0 pg (27.0-33.4) 04/12/19 10:44 MCHC 32.8 g/dL (32.0-36.0) 04/12/19 10:44 RDW 13.3 % (11.5-14.0) 04/12/19 10:44 Plt Count 308 10^3/uL (150-450) 04/12/19 10:44 Lymph % (Auto) Not Reportable 04/12/19 10:44 [place] % (Auto) Not Reportable 04/12/19 10:44 Eos % (Auto) Not Reportable 04/12/19 10:44 Baso % (Auto) Not Reportable 04/12/19 10:44 Absolute Neuts (auto) Not Reportable 04/12/19 10:44 Absolute Lymphs (auto) Not Reportable 04/12/19 10:44 Absolute Monos (auto) Not Reportable 04/12/19 10:44 Absolute Eos (auto) Not Reportable 04/12/19 10:44 Absolute Basos (auto) Not Reportable 04/12/19 10:44 Total Counted 100 04/12/19 10:44 Seg Neutrophils % Not Reportable 04/12/19 10:44 Seg Neuts % (Manual) 69 % (42-78) 04/12/19 10:44 Band Neutrophils % 1 % (3-5) L 04/12/19 10:44 Lymphocytes % (Manual) 19 % (13-45) 04/12/19 10:44 Monocytes % (Manual) 10 % (3-13) 04/12/19 10:44 Eosinophils % (Manual) 0 % (0-6) 04/12/19 10:44 Basophils % (Manual) 0 % (0-2) 04/12/19 10:44 Metamyelocytes % 1 % (0-1) 04/12/19 10:44 Abs Neuts (Manual) 8.8 10^3/uL (1.7-8.2) H 04/12/19 10:44 Abs Lymphs (Manual) 2.4 10^3/uL (0.5-4.7) 04/12/19 10:44 Abs Monocytes (Manual) 1.2 10^3/uL (0.1-1.4) 04/12/19 10:44 Absolute Eos (Manual) 0.0 10^3/uL (0.0-0.6) 04/12/19 10:44 Abs Basophils (Manual) 0.0 10^3/uL (0.0-0.2) 04/12/19 10:44 Clumped Platelets PRESENT 04/08/19 12:47 Giant Platelets PRESENT 04/07/19 22:11 Platelet Comment ADEQUATE 04/12/19 10:44 RBC Morph Comment NORMO-CYTIC/CHROMIC 04/12/19 10:44 VBG pH 7.29 (7.30-7.42) L 04/08/19 00:50 VBG pCO2 51.6 mmHg (35-63) 04/08/19 00:50 VBG HCO3 24.3 mmol/L (20-32) 04/08/19 00:50 VBG Base Excess -3.1 mmol/L 04/08/19 00:50 Sodium 137.4 mmol/L (137-145) 04/12/19 10:44 Potassium 4.5 mmol/L (3.6-5.0) 04/12/19 10:44 Chloride 99 mmol/L (98-107) 04/12/19 10:44 Carbon Dioxide 31 mmol/L (22-30) H 04/12/19 10:44 Anion Gap 7 (5-19) 04/12/19 10:44 BUN 40 mg/dL (7-20) H 04/12/19 10:44 Creatinine 1.31 mg/dL (0.52-1.25) H 04/12/19 10:44 Est GFR ( Amer) 47 (>60) L 04/12/19 10:44 Est GFR (Non-Af Amer) Cancelled 04/07/19 22:11 Est GFR (MDRD) Non-Af 39 (>60) L 04/12/19 10:44 Glucose 149 mg/dL (75-110) H 04/12/19 10:44 POC Glucose 127 mg/dL (70-110) H 04/12/19 11:29 Lactic Acid 1.7 mmol/L (0.7-2.1) 04/07/19 23:05 Calcium 9.4 mg/dL (8.4-10.2) 04/12/19 10:44 Magnesium 2.2 mg/dL (1.6-2.3) 04/10/19 06:45 Total Bilirubin 1.0 mg/dL (0.2-1.3) 04/07/19 23:05 Direct Bilirubin 0.5 mg/dL (0.0-0.4) H 04/07/19 23:05 Neonat Total Bilirubin Not Reportable 04/07/19 23:05 Neonat Direct Bilirubin Not Reportable 04/07/19 23:05 Neonat Indirect Bili Not Reportable 04/07/19 23:05 AST 32 U/L (14-36) 04/07/19 23:05 ALT 19 U/L (<35) 04/07/19 23:05 Alkaline Phosphatase 121 U/L (38-126) 04/07/19 23:05 Troponin I < 0.012 ng/mL 04/07/19 23:05 NT-Pro-B Natriuret Pep 258 pg/mL (<450) 04/07/19 23:05 Total Protein 6.5 g/dL (6.3-8.2) 04/07/19 23:05 Albumin 3.3 g/dL (3.5-5.0) L 04/07/19 23:05 EGFR Cancelled 04/07/19 22:11 TSH 0.28 uIU/mL (0.47-4.68) L 04/10/19 06:45 Free T4 1.60 ng/dL (0.78-2.19) 04/10/19 06:45 Free T3 pg/mL 1.85 pg/mL (2.77-5.27) L 04/10/19 06:45 Urine Color YELLOW 04/08/19 00:40 Urine Appearance CLOUDY 04/08/19 00:40 Urine pH 5.0 (5.0-9.0) 04/08/19 00:40 Ur Specific [place] 1.020 04/08/19 00:40 Urine Protein 100 mg/dL (NEGATIVE) H 04/08/19 00:40 Urine Glucose (UA) NEGATIVE mg/dL (NEGATIVE) 04/08/19 00:40 Urine Ketones NEGATIVE mg/dL (NEGATIVE) 04/08/19 00:40 Urine Blood SMALL (NEGATIVE) H 04/08/19 00:40 Urine Nitrite NEGATIVE (NEGATIVE) 04/08/19 00:40 Urine Bilirubin SMALL (NEGATIVE) H 04/08/19 00:40 Urine Urobilinogen 4.0 mg/dL (<2.0) H 04/08/19 00:40 Ur Leukocyte Esterase MODERATE (NEGATIVE) H 04/08/19 00:40 Urine WBC (Auto) 7 /HPF 04/08/19 00:40 Urine RBC (Auto) 3 /HPF 04/08/19 00:40 U Hyaline Cast (Auto) 15 /LPF 04/08/19 00:40 Urine Bacteria (Auto) TRACE /HPF 04/08/19 00:40 Urine WBC Clumps RARE /HPF 04/08/19 00:40 Squamous Epi Cells Auto 3 /HPF 04/08/19 00:40 Urine Mucus (Auto) OCC /LPF 04/08/19 00:40 Urine Ascorbic Acid NEGATIVE (NEGATIVE) 04/08/19 00:40 Slides for Path Review PATHOLOGIST REVIEWED 04/09/19 04:04 04/07/19 04/07/19 22:11 23:05 Troponin I Cancelled < 0.012 NT-Pro-B Natriuret Pep Cancelled 258 Impressions: Chest X-Ray 04/07/19 22:21 IMPRESSION: No acute cardiopulmonary abnormalities. Chest CT 04/09/19 00:00 IMPRESSION: 1. Mild bibasilar consolidation, right greater than left, likely atelectatic change. 2. Scattered coronary atherosclerosis. 3. No other evidence of acute intrathoracic process. Stroke Is this a Stroke Patient?: No Acute Heart Failure - Is this a Heart Failure Patient?: No
== END 2019-04-12 17:02 | disposition home health service (06) ==
LOC: ER 21:33 → EH 04-08 02:18 → 5 04-08 09:06
PROVIDERS: ADMIT Internal Medicine; ATTEND Internal Medicine
DX: J96.01 Acute respiratory failure with hypoxia (principal); J44.1 Chronic obstructive pulmonary disease with (acute) exacerbation; E11.22 Type 2 diabetes mellitus with diabetic chronic kidney disease; I12.9 Hypertensive chronic kidney disease with stage 1 through stage 4 chronic kidney disease, or unspecified chronic kidney disease; N18.3 Chronic kidney disease, stage 3 (moderate); G47.33 Obstructive sleep apnea (adult) (pediatric); J18.9 Pneumonia, unspecified organism; I95.9 Hypotension, unspecified; E66.01 Morbid (severe) obesity due to excess calories; F29 Unspecified psychosis not due to a substance or known physiological condition; R45.1 Restlessness and agitation; E03.9 Hypothyroidism, unspecified; R53.81 Other malaise; R60.0 Localized edema; Z79.899 Other long term (current) drug therapy; R53.1 Weakness; D72.828 Other elevated white blood cell count; R26.2 Difficulty in walking, not elsewhere classified; Z87.891 Personal history of nicotine dependence; Z82.49 Family history of ischemic heart disease and other diseases of the circulatory system; Z60.2 Problems related to living alone
CPT/HCPCS: 93005 ×2; 94640 ×7; 99285; 96372; 96361; 51701; 96375; 96365; 96366; 96367; 36415 ×5; 87040; 84439; 82962 ×5; 83605; 83735; 84443; 85025 ×3; 85027; 80048 ×4; 80053; 81001; 84484; 84481; 82803; 83880; 71045; 71250; 94799 ×2; 93010 ×2; 94660 ×5; 94667; 94668 ×4; G0378 ×5; A9270 ×31; J1644 ×5; J3360; J1630; J2920 ×2; J3490 ×5; J7060 ×4; J7030; J0456 ×4; J0696 ×4; J1815; J7512; J7620